=== PATIENT | male | born 1955 | race Caucasian/White ===

== ENCOUNTER 2018-08-31 08:18 | Outpatient (CLI) | payer OTHER, SELFPAY ==
--- NOTE | 2018-08-31 08:24 | DI.RAD_ITS ---
SYMPTOMS/DIAGNOSIS: RM HAND PAIN, M79.671, M79.642 RIGHT HAND: The exam is limited by finger flexion. No fracture or bony erosions are seen. There is mild periarticular spurring. There is no significant joint space narrowing. The carpal region is unremarkable. IMPRESSION: Mild degenerative changes. LEFT HAND: There is soft tissue at the distal aspect of the fourth finger. There is some deformity of the distal phalanx presumably related to an old healed fracture. There is mild periarticular spurring of the interphalangeal joints of the fingers and bases of the proximal phalanges. The carpal region is unremarkable. No bony erosions are seen. IMPRESSION: Tuft deformity related to an old healed fracture. Mild degenerative changes.
== END 2018-08-31 08:38 ==
PROVIDERS: PCP Family Medicine; Visit Provider Family Medicine
DX: M79.641 Pain in right hand (principal); M79.642 Pain in left hand; M19.041 Primary osteoarthritis, right hand; M19.042 Primary osteoarthritis, left hand
CPT/HCPCS: 73130

== ENCOUNTER 2018-09-08 01:33 | Outpatient (CLI) | payer OTHER, SELFPAY ==
[2018-09-08 10:32] LABS: Abs Immature Grans 0.02 k/cumm (0.0-0.09); Absolute Basophil Count 0.03 k/cumm (0.0-0.2); Absolute Eosinophil Count 0.12 k/cumm (0.0-0.7); Absolute Lymphocyte Count 1.76 k/cumm (1.2-3.4); Absolute Monocyte Count 0.49 k/cumm (0.11-0.7); Absolute Neutrophil Count 4.62 k/cumm (1.2-6.7); Basophils % 0.4; Eosinophils % 1.7; HCT 44.3 % (40.0-50.0); HGB 15.5 g/dL (13.5-17.5); Immature Grans % 0.3; Mean Corpuscular Hemoglobin 30.5 pg (27.0-33.0); Mean Platelet Volume 10.6 fL (8.0-11.0); Neutrophils % 65.6; Platelet Count 224 x1000/uL (130-400); RBC 5.09 m/cumm (4.50-6.00); RBC Distribution Width 12.6 % (11.8-14.1); White Blood Cell Count 7.04 k/cumm (4.4-10.8)
[2018-09-08 10:40] LABS: Anion Gap 10.2 mmol/L (3-11); BUN 21 mg/dL (7-18); C-Reactive Protein 0.22 mg/dL (0.0-0.3); CO2 27.8 mmol/L (21.0-32.0); CREATININE 0.84 mg/dL (0.70-1.30); Calcium 8.8 mg/dL (8.5-10.1); Chloride 100 mmol/L (98-107); Glucose 200 mg/dL (70-100); Potassium 4.4 mmol/L (3.5-5.1); Sodium 138 mmol/L (136-145)
[2018-09-08 14:38] LABS: ESR 11 MM/HR (1-20)
== END 2018-09-08 01:53 ==
PROVIDERS: PCP Family Medicine; Visit Provider Family Medicine
DX: M79.641 Pain in right hand (principal); M79.642 Pain in left hand
CPT/HCPCS: 36415; 80048; 85652; 85025; 86140

== ENCOUNTER 2018-09-17 02:06 | Outpatient (CLI) | payer OTHER, SELFPAY ==
[2018-09-17 08:16] LABS: Hemoglobin A1C 8.5 % (4.5-6.2)
[2018-09-18 10:27] LABS: Rheumatoid Factor 13 IU/mL (<12.5)
[2018-09-18 13:56] LABS: ANA Interpretation Negative (NEGAT)
== END 2018-09-17 02:26 ==
PROVIDERS: PCP Family Medicine; Visit Provider Psychiatry & Neurology Neurology
DX: E11.9 Type 2 diabetes mellitus without complications (principal); M79.642 Pain in left hand; M79.641 Pain in right hand
CPT/HCPCS: 36415; 83036; 86038; 86431

== ENCOUNTER 2018-09-30 08:53 | Outpatient (CLI) | payer OTHER, SELFPAY ==
[2018-10-01 09:43] LABS: Cyclic Citrullinated Peptide <2.5 U/mL (<5.0)
== END 2018-09-30 09:13 ==
PROVIDERS: PCP Family Medicine; Visit Provider Family Medicine
DX: M79.641 Pain in right hand (principal); M79.642 Pain in left hand
CPT/HCPCS: 36415; 86200

== ENCOUNTER 2018-10-16 11:06 | Outpatient (CLI) | payer OTHER, SELFPAY ==
--- NOTE | 2018-10-16 10:59 | DI.RAD_ITS ---
SYMPTOMS/DIAGNOSIS: RM HAND PAIN, DYSTROPHY, RECOMMENDED CXR PER RHEUMATOLOGY PA AND LATERAL CHEST: The heart is not enlarged. The lungs appear predominantly clear. There is a question of an area of nodular radiodensity projected over the right lower lung field. Although this may represent a summation shadow, the possibility of intrapulmonary nodule or mass is not excluded. Chest CT requested for further evaluation. No pleural effusion seen. CONCLUSION: Chest CT requested for questionable right lung base finding as described above.
== END 2018-10-16 11:26 ==
PROVIDERS: PCP Family Medicine; Visit Provider Physician Assistant
DX: M79.641 Pain in right hand (principal); M79.642 Pain in left hand; R91.1 Solitary pulmonary nodule
CPT/HCPCS: 71046

== ENCOUNTER 2018-10-22 00:58 | Outpatient (CLI) | payer OTHER, SELFPAY ==
--- NOTE | 2018-10-22 09:39 | DI.CT_ITS ---
SYMPTOM/DIAGNOSIS: PULMONARY NODULE ON CHEST XRAY,R91.[address]: Chest CT was performed with intravenous infusion of 70 cc's of Omnipaque 350. This examination was obtained to evaluate a questionable nodular or mass-like density superimposed over the right lung base on recent chest radiograph. Images obtained through the upper abdomen show hepatic steatosis and a probable upper pole left renal cyst. Otherwise visualized liver, pancreas, adrenals, kidneys and spleen are normal. No mediastinal or hilar adenopathy is seen. Tracheobronchial tree appears intact. Lungs are clear with no evidence of a pulmonary nodule or pulmonary mass. No pleural effusion is seen. CONCLUSION: Negative chest CT. No pulmonary nodule seen.
[2018-10-22] MEDS: Omnipaque 350 MG/ML 100 ML BTL 70 ML IJ (09:41)
== END 2018-10-22 01:18 ==
PROVIDERS: PCP Family Medicine; Visit Provider Family Medicine
DX: R91.1 Solitary pulmonary nodule (principal); K76.0 Fatty (change of) liver, not elsewhere classified; N28.1 Cyst of kidney, acquired
CPT/HCPCS: 71260; J3490

== ENCOUNTER 2018-11-12 11:17 | Day surgery (SDC) | payer OTHER, SELFPAY ==
[2018-11-12 11:40] VITALS: BP 134/81; PULSE 83; RESP 18; TEMP 35.6; O2SAT 96
[2018-11-12] MEDS: Lactated Ringers 1,000 ML 80 ML IV (12:07)
--- NOTE | 2018-11-12 12:17 | PDOC.DSDIS_ITS ---
Discharge Plan Disposition Patient Disposition: HOME Condition: Good Discharge Details Reason For Visit: CTS Attending Provider: Sanjay Cunha Primary Care Provider: Jasper Albrecht Home Meds and New Rx's Prescriptions: New acetaminophen 500 mg tablet 1,000 mg PO Q8H PRN (Reason: pain) Qty: 90 RF: 3 Continued naproxen 500 mg tablet 500 mg PO BID PRN (Reason: pain) Qty: 60 RF: 2 FreeStyle Lite Strips strip 1 ea Miscellaneous DAILY Qty: 90 RF: 3 duloxetine 60 mg capsule,delayed release(DR/EC) 60 mg PO DAILY Qty: 30 RF: 2 glimepiride 2 mg tablet 2 mg PO DAILY Qty: 90 RF: 3 lancets [FreeStyle Lancets] 28 gauge misc 1 ea Miscellaneous DAILY Qty: 90 RF: 3 metformin 750 mg tablet extended release 24 hr 2,250 mg PO DAILY Qty: 270 RF: 3 lisinopril 5 mg tablet 5 mg PO DAILY Qty: 90 RF: 3 lidocaine-prilocaine 2.5-2.5 % cream 1 applic TP .q4hr PRN (Reason: pain) Qty: 30 RF: 3 aspirin [Aspir-81] 81 MG tablet,delayed release (DR/EC) 1 tab PO DAILY RF: 0 blood-glucose meter [FreeStyle Lite Meter] 1 EACH kit 1 ea Miscellaneous DAILY Qty: 1 RF: 0 Discharge Instructions Stand Alone Forms: Alphonse Bonilla Tunnel Release Referrals: Sanjay Cunha MD [ [facility] STAFF PHYSICIAN] - Activity:: Elevate Remove Dressings/Wound Care:: 48 hours Shower/Bathe:: 48 hours Diet:: Carb Counting Discharge Orders Discharge Orders: Discharge Order (Routine); Ordered 11/12/18 Ordered By: Sanjay Cunha DS: Diagnosis Discharge Diagnosis (1) Right carpal tunnel syndrome: Status: Acute
[2018-11-12] MEDS: ceFAZolin 2 GM/50 ML BAG IVPB (12:27)
[2018-11-12] MEDS: Sodium Bicarbonate 50 MEQ/50 ML VIAL (12:37)
[2018-11-12] MEDS: Lidocaine 1% Pres-Free 5 ML VIAL (12:37)
[2018-11-12] MEDS: HYDROcodone 5/Acetaminophen 325 TAB PO (13:17)
[2018-11-12 13:37] VITALS: BP 119/76; PULSE 80; RESP 18; TEMP 35.4; O2SAT 94
--- NOTE | 2018-11-12 15:54 | W.PM.OP ---
Date of service: 11/12/18 Time of Service: 15:54 Operative Note DATE OF PROCEDURE: 11/12/18 PRE-OP DIAGNOSIS: Right Carpal Tunnel Syndrome POST-OP DIAGNOSIS: same PROCEDURE: Right Endoscopic Carpal Tunnel Release SURGEON: Sanjay Cunha ANESTHESIA: MAC ESTIMATED BLOOD LOSS: 0 PATHOLOGY: none sent TOURNIQUET TIME: 6 COMPLICATIONS: None Patient was transported to: same day Patient's condition: stable Indications: I have seen Huber in clinic for symptoms of carpal tunnel syndrome. The numbness, tingling, and pain limited function. Clinical exam findings [with nerve conduction tests ]confirmed the diagnosis of carpal tunnel syndrome. Nonoperative measures such as bracing, time, activity modifications had been tried but disability and pain persisted. I discussed carpal tunnel release with the patient. I reviewed the risks of the procedure to include, but not limited to, bleeding, infection, pain, stiffness, incomplete release, damage to nerves or vessels, persistent numbness, recurrence. Despite these risks, the patient elected to proceed. Findings: There was tightened carpal tunnel. This was dilated and released successfully with the endoscopic with increased space within the tunnel. The antebrachial fascia was released proximally freeing the median nerve at the wrist. Procedure Description: Huber was greeted in the preoperative holding area where the correct side was identified and marked. The consent was reviewed with the patient and signed. The history and physical was updated. All questions were answered. Huber was taken back to the operating room. The patient was placed into the supine position on the operating room table with the right arm on an arm board. A nonsterile tourniquet was placed high onto the arm. All bony prominences were well padded. Prophylactic antibiotics in the form of Cefazolin were administered. The right arm was then prepped with Chloraprep and draped in a standard fashion with stockinette and extremity drape. A timeout to confirm correct identity, side and site, procedure, allergies, anesthesia, and medical concerns was performed. The surgical site was marked in the volar wrist creases in line with the radial border of the fourth ray. This area was anesthetized with approximately 6cc of 1% Lidocaine. The limb was then exsanguinated with an Esmarch. The skin was incised with a 15 blade, approximately 1cm. The skin only was cut and the deeper tissue was dissected bluntly with a tenotomy scissor, avoiding passing nerve and venous structures. The fascia was penetrated and opened bluntly. A two-prong skin hook was placed under this proximal fascial edge. A series of hamate finders were used to identify and dilate the carpal tunnel. Synovial elevator was used to free synovial attachments to the underside of the transverse carpal ligament. My thumb was kept in the palm to manuel the distal extent of the carpal tunnel and correctly position the hand. The Microaire endoscope was inserted without difficulty and without resistance. Excellent visualization showed horizontally running fibers of the transverse carpal ligament (TCL). The distal extent of the TCL was visualized and the end of the scope palpated with the thumb. The blade was elevated and withdrawn from distal to proximal. The TCL was split into two flaps. The endoscope was reinserted to confirm complete release and any remnant ligament was incised. The scope was withdrawn and the proximal aspect of the carpal tunnel was grossly inspected and appeared release with the median nerve visible. The antebrachial fascia at the level of the wrist was then freed from the overlying skin and then the underlying median nerve with blunt dissection. This was transected longitudinally for about 3cm proximal to the wrist incision. The wound was then irrigated with easy flow of irrigant distally and proximally. The incision was closed with a single 4-0 Nylon suture. The wound was dressed with Xeroform, Gauze, Kerlix and Michele. The tourniquet was deflated with the initial dressing and held with some pressure. Blood flow returned easily to all digits with capillary refill less than 2 seconds. The patient tolerated the procedure well and was returned to the Same Day Surgery area in a stable condition suffering no known complication.
== END 2018-11-12 14:05 | disposition home or self-care (01) ==
PROVIDERS: PCP Family Medicine; Visit Provider Student in an Organized Health Care Education/Training Program
PROC: 01N54ZZ Release Median Nerve, Percutaneous Endoscopic Approach (ICD-10-PCS; CPT 29848; principal; 2018-11-12 12:45)
DX: G56.01 Carpal tunnel syndrome, right upper limb (principal)
CPT/HCPCS: 29848; J0690; J1885; J2250; J3010

== ENCOUNTER 2018-12-15 11:32 | Day surgery (SDC) | payer OTHER, SELFPAY ==
[2018-12-15] VITALS (7 sets, daily range): BP systolic 126–150; BP diastolic 77–92; PULSE 70–82; RESP 16–21; TEMP 35.7–36.5; O2SAT 93–95
[2018-12-15] MEDS: Lactated Ringers 1,000 ML 80 ML IV (12:02)
[2018-12-15] MEDS: FAMOTIDINE 20 MG/50 ML BAG 50 MG (13:14)
[2018-12-15] MEDS: ceFAZolin 3,000 MG in Normal Saline 100 ML 200 MG IVPB (13:40)
--- NOTE | 2018-12-15 14:29 | PDOC.DSDIS_ITS ---
Discharge Plan Disposition Patient Disposition: HOME Condition: Good Discharge Details Reason For Visit: Right Ulnar Nerve Decompression Attending Provider: Sanjay Cunha Primary Care Provider: Jasper Albrecht Home Meds and New Rx's Prescriptions: New hydrocodone-acetaminophen 5-325 mg tablet 1 tab PO Q6H PRN PRN (Reason: pain) Qty: 8 RF: 0 Continued naproxen 500 mg tablet 500 mg PO BID PRN (Reason: pain) Qty: 60 RF: 2 FreeStyle Lite Strips strip 1 ea Miscellaneous DAILY Qty: 90 RF: 3 duloxetine 60 mg capsule,delayed release(DR/EC) 60 mg PO DAILY Qty: 30 RF: 2 glimepiride 2 mg tablet 2 mg PO DAILY Qty: 90 RF: 3 lancets [FreeStyle Lancets] 28 gauge misc 1 ea Miscellaneous DAILY Qty: 90 RF: 3 metformin 750 mg tablet extended release 24 hr 2,250 mg PO DAILY Qty: 270 RF: 3 lisinopril 5 mg tablet 5 mg PO DAILY Qty: 90 RF: 3 aspirin [Aspir-81] 81 MG tablet,delayed release (DR/EC) 1 tab PO DAILY RF: 0 blood-glucose meter [FreeStyle Lite Meter] 1 EACH kit 1 ea Miscellaneous DAILY Qty: 1 RF: 0 acetaminophen 500 mg tablet 1,000 mg PO Q8H PRN (Reason: pain) Qty: 90 RF: 3 Biofreeze (menthol) 4 % Gel 4 % TOPICAL PRN PRNRF: 0 Discharge Instructions Additional Instructions: Activity: You should stay in the sling for the first 2 weeks. You may come out of the sling for gentle motion and hygiene but should largely remain in the sling to allow the incision site to heal. Gentle motion of the elbow, hand, wrist, and fingers is okay and encouraged after the first few days, but no repetitive activites nor heavy lifting. You may apply ice. Medications: - You should take Tylenol and Ibuprofen around the clock. - You have been prescribed Hydrocodone for breakthrough pain. Dressings: - The initial surgical dressing should stay in place for 3 days. It may then be removed and kept clean and dry. You should cover with a light gauze dressing. - You may shower after 3 days and get the wound wet. Follow-up: 10 days Referrals: Sanjay Cunha MD [ 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
--- NOTE | 2018-12-16 11:37 | ROE_ITS ---
REPORT OF OPERATIVE PROCEDURE DATE OF SURGERY December 15, 2018 PREOPERATIVE DIAGNOSIS Right cubital tunnel syndrome. POSTOPERATIVE DIAGNOSIS Right cubital tunnel syndrome. SURGERY Right cubital tunnel decompression with anterior subcutaneous ulnar nerve transposition. SURGEON Sanjay Cunha M.D. [employer] ENGINE[employer] Bright Carrasco PA-C ANESTHESIA General. ESTIMATED BLOOD LOSS Minimal. TOURNIQUET TIME 26 Minutes. COMPLICATIONS None. DISPOSITION The patient was awakened from anesthesia and taken to the PACU in stable condition. FINDINGS There was notable tightness of the ulnar nerve at the level of Pop's ligament and going into the flexor carpi ulnaris. It was less tight proximally. There was also noted to be a very odd looking fa tty sheath surrounding the ulnar nerve. This was released separately to expose the ulnar nerve. Decom pression was done first and the nerve still was INDICATION FOR PROCEDURE Huber is a 63-year old who has a very bizarre symptom presentation of the inability to use his hand. He had some numbness and pain that did not seem to fit with any known diagnosis. Hew as seen by Neurolo gy, which showed very clear carpal and cubital tunnel syndrome on the right side by nerve conduction studies. Given the failure of all other treatment modalities, I did offer decompression of each, he h ad the carpal tunnel release done a few weeks prior, which had excellent results in resolving some of his symptoms and increasing the usability of his hand. Therefore, I offered proceeding with a cubita l tunnel release. I reviewed the risks of the procedure to include bleeding, infection, pain, stiffness, damage to nerv e, damage to vessels, damage to muscles and tendons, continued symptoms, numbness over the medial elb ow, wound healing difficulties, despite these risks, he elected to proceed. PROCEDURE DESCRIPTION Huber is a 63-year who was greeted in the preoperative holding area. His identity was confirmed and the correct side was identified and marked. The consent was reviewed with the patient and signed. The hi story and physical was updated. He was taken back to the Operating Room. A general anesthetic was administered. He right arm was jarad kane onto a hand table. A nonsterile tourniquet was placed very high up on the right arm into the axil la. The tourniquet was set to 275 mmHg. The right arm was then prepped with ChloraPrep and draped in a standard fashion. Prophylactic antibio tics in the form of cefazolin 3 grams was given. A time-out was performed for safe surgery. The proposed surgical site was marked over the medial elbow. It was anesthetized with 0.5% bupivacain e with epinephrine. The limb was then exsanguinated with an Esmarch and the tourniquet was inflated to 275 mmHg, where it stayed for 27 minutes. A 6-cm incision was made just posterior to the medial epicondyle. The medial epicondyle was marked on the skin for later referencing. The skin was incised sharply. Deep dissection was carried down with tenotomy scissors. There were two branches of the medial and antebrachial cutaneous nerve, which seem ed to be identified, however, visualization was quite difficult given the amount of fat in this area. Adiposity was quite dense and difficult to get down to the appropriate level. These two nerve branch es were protected. The ulnar nerve was identified by palpation. The sheath was entered. Interestingly , the Pop's ligament was quite tight. This was released sharply. There was a fatty appearance to the nerve, which seemed to be an outer synovial sheath of fat. This was incised, exposing the ulnar n erve. This sheath was actually quite adherent and tight in areas too. This was released down through Pop's ligament down to two heads of the FCU. The fascia of the flexor carpi ulnaris was also shweta te tight against the nerve. This was extended down into the forearm. It was made sure to protect any of the branches into the flexor carpi ulnaris muscle. The ulnar nerve was fully identified from the l evel of the medial epicondyle distally, which seemed to have good release. Working proximally, there was some tightness at the [place]. This was released. The medial intermuscular septum was not particularly dense nor sharp against the ulnar nerve in this area. A finger dissection was used to make sure the nerve was free all the way into the proximal arm. Any remnant of the arcade of Str[place] hers was releases sharply. The nerve was then evaluated for stability. With the arm in maximal flexio n, the nerve did sublux to the outer edge of the medial epicondyle. While it did not fully dislocate, given his size and the curious nature of his symptoms, I went ahead with the anterior subcutaneous t ransposition. A small flap of tissue was raised from the fascia overlying the medial epicondyle from the flexor pronator mass. This would be used for a fascial sling. The nerve was made sure to be total ly free. A vessel loop was placed around the nerve and circumferential debridement was performed allo wing the nerve to move anterior. Once it was moved anterior and held in that position, the distal and proximal edges were also checked to make sure there was no other secondary sources of impingement. T here appeared to be none. The fascial sling was then reapproximated to the deep dermal layer at the l evel of the medial epicondyle as marked on the skin. This was done with a #0-Vicryl. Once this was ti ed, the nerve was fully inspected, which seemed to be loose within the anterior aspect of the elbow, although resting against the sling. The wound was then thoroughly irrigated. The tourniquet was defla toma. There was no major bleeding. The skin was closed with #3-0 Vicryl, followed by #4-0 Nylon. The w ound was dressed Xeroform, 4x4s, ABD, Kerlix and an Michele wrap. He was placed into a sling. At the end of the case all counts were correct. He was transferred back to the PACU in stable condition. There were no complications.
== END 2018-12-15 16:45 | disposition home or self-care (01) ==
PROVIDERS: PCP Family Medicine; Visit Provider Student in an Organized Health Care Education/Training Program
PROC: (CPT 64718; principal; 2018-12-15 14:00)
DX: G56.21 Lesion of ulnar nerve, right upper limb (principal); E11.9 Type 2 diabetes mellitus without complications; I10 Essential (primary) hypertension
CPT/HCPCS: 64718; J0131; J0690; J1100; J1885; J2405; L3650

== ENCOUNTER 2018-12-30 08:45 | Outpatient (CLI) | payer OTHER, SELFPAY ==
[2018-12-30 11:22] LABS: Vitamin B12 387 pg/mL (193-986)
[2018-12-31 08:34] LABS: Hemoglobin A1C 9.8 % (4.5-6.2)
[2018-12-31 13:30] LABS: Albumin 57.8 % (55.8-66.1); Comment SEE COMMENTS; Total Protein 6.8 g/dl (6.3-8.2)
[2019-01-05 19:04] LABS: Immunotyping, Serum Interpretation:
== END 2018-12-30 09:05 ==
PROVIDERS: PCP Family Medicine; Visit Provider Family Medicine
DX: R63.4 Abnormal weight loss (principal); E11.9 Type 2 diabetes mellitus without complications
CPT/HCPCS: 36415; 82607; 83036; 84165; 86320

== ENCOUNTER 2019-03-30 09:06 | Outpatient (CLI) | payer OTHER, SELFPAY ==
[2019-03-30 15:06] LABS: Hemoglobin A1C 10.3 % (4.5-6.2)
== END 2019-03-30 09:26 ==
PROVIDERS: PCP Family Medicine; Visit Provider Family Medicine
DX: E11.9 Type 2 diabetes mellitus without complications (principal)
CPT/HCPCS: 36415; 83036

== ENCOUNTER 2019-07-11 09:34 | Emergency (ER) | payer OTHER, SELFPAY ==
[2019-07-11 09:37] VITALS: BP 142/80; PULSE 118; TEMP 36.6; O2SAT 96
--- NOTE | 2019-07-11 10:23 | ED.GENADUL_ITS ---
Discharge Plan Disposition Patient Disposition: [facility] Condition: Stable Discharge Details Chief Complaint: Cellulitis Clinical Impression: Cellulitis of scrotum, Pathological accumulation of air in tissues, Necrotizing fasciitis Primary Care Provider: Jasper Albrecht ED Provider: Argelia Mike Home Meds and New Rx's Prescriptions: No Action naproxen 500 mg tablet 500 mg PO BID PRN (Reason: pain) Qty: 60 RF: 2 Hold Instructions: Changed by Provider (SUSAN) FreeStyle Lite Strips strip 1 ea Miscellaneous DAILY Qty: 90 RF: 3 glimepiride 2 mg tablet 2 mg PO DAILY Qty: 90 RF: 3 (DME) lancets [FreeStyle Lancets] 28 gauge misc 1 ea Miscellaneous DAILY Qty: 90 RF: 3 metformin 750 mg tablet extended release 24 hr 2,250 mg PO DAILY Qty: 270 RF: 3 hydrocodone-acetaminophen 5-325 mg tablet 1 tab PO Q6H PRN PRN (Reason: pain) RF: 0 lisinopril 5 mg tablet 5 mg PO DAILY Qty: 90 RF: 3 aspirin [Aspir-81] 81 MG tablet,delayed release (DR/EC) 1 tab PO DAILY RF: 0 (DME) blood-glucose meter [FreeStyle Lite Meter] 1 EACH kit 1 ea Miscellaneous DAILY Qty: 1 RF: 0 Jardiance 10 mg tablet 10 mg PO DAILY Qty: 30 RF: 2 acetaminophen 500 mg tablet 1,000 mg PO Q8H PRN (Reason: pain) Qty: 90 RF: 3 Biofreeze (menthol) 4 % Gel 4 % TOPICAL PRN PRNRF: 0 Medical Decision Making 1215 -- 64-year-old male with a history of obesity, diabetes, hypertension presents for right scrotal pain, edema, erythema for the past 4 days. States his sugars have been in the 120s. He denies fever, vomiting, abdominal pain or urinary symptoms Patient appears nontoxic. Patient has significant erythema, edema and indura tion to the right superior scrotum. He does not have significant tenderness or erythema to the testicles bilaterally. Penis normal to inspection. Abdomen soft and nontender. Main concern for necrotizing fasciitis. Differential could also include cellulitis, abscess, hernia. Will place an IV, bolus IV fluids, screening labs, urinalysis and CT pelvis and a dose of morphine. 1250 -- Labs and imaging reviewed. White blood cell count 13. Lactate 1.1. CT pelvis notes 15 mm collection of air in the soft tissues of the right scrotum consistent with significant infection, differential includes early necrotizing fasciitis. There is also a 3 cm oval structure right hemiscrotum which may represent active extravasation. Case discussed with surgery Dr. Bean and recommends transfer to [facility] as we do not have biologic material if needed for plastic surgery Case discussed with [facility] surgery Dr. Theodore --recommends urology - discussed with urology Dr. Birch who recommends urgent transfer to the ED with plans to take to the OR. Agreeable with plan for [facility] Zosyn. Will give 7 units insulin for hyperglycemia. Patient is agreeable with plan for transfer. Medical Records Medical records reviewed: Yes I reviewed the patient's medical records. Imaging Data Radiologic Study: Radiologist's impression: CT Abdomen And Pelvis With Contrast Exam date and time: 07/11/2019 11:22 AM Age: 64 years old Clinical indication: Abdominal pain; Other: Groin pain; Patient HX: Right upper scrotum pain/ redness/ swelling. Patient sts right testicular pain x4 days, no trauma, no surgeries, no issues urinating. TECHNIQUE: Imaging protocol: Computed tomography of the abdomen and pelvis with intravenous contrast. Radiation optimization: All CT scans at this facility use at least one of these dose optimization techniques: automated exposure control; mA and/or kV adjustment per patient size (includes targeted exams where dose is matched to clinical indication); or iterative reconstruction. Contrast material: OMNIPAQUE 350; Contrast volume: 100 ml; Contrast route: IV; COMPARISON: No relevant prior studies available. FINDINGS: Liver: Normal. No mass. Gallbladder and bile ducts: Normal. No calcified stones. No ductal dilation. Pancreas: Normal. No ductal dilation. Spleen: Normal. No splenomegaly. Adrenals: Normal. No mass. Kidneys and ureters: 2 cm hypodensity in the left kidney on the 1st image. Thirty Hounsfield units. The differential includes infection. No renal calculus. No ureteral calculus Stomach and bowel: Unremarkable. No obstruction. No mucosal thickening. Appendix: Normal appendix Intraperitoneal space: Unremarkable. No free air. No significant fluid collection. Vasculature: Unremarkable. No abdominal aortic aneurysm. Lymph nodes: Unremarkable. No enlarged lymph nodes. Bladder: Unremarkable as visualized. Reproductive: 15 mm collection of air in the soft tissues of the right scrotum consistent with significant infection. Differential includes early necrotizing fasciitis. Inflammatory changes surround the air in the right scrotum. 3 cm oval structure in the right hemiscrotum has a fluid fluid level and curvilinear hyperdensities. This may represent active extravasation into the right scrotum. Image 83 and 84. Bones/joints: Unremarkable. No acute fracture. Soft tissues: Unremarkable. IMPRESSION: 1. 15 mm collection of air in the soft tissues of the right scrotum consistent with significant infection. Differential includes early necrotizing fasciitis. Inflammatory changes surround the air in the right scrotum. 2. 3 cm oval structure in the right hemiscrotum has a fluid fluid level and curvilinear hyperdensities. This may represent active extravasation into the right scrotum. Image 83 and 84. This could also represent hematoma and infection 3. 2 cm hypodensity in the left kidney on the 1st image. Thirty Hounsfield units. The differential includes infection. Lab Data Lab results reviewed: Yes I reviewed the patient's lab results. Labs: 07/11/19 11:13 Blood Blood Culture - Pending 07/11/19 10:45 Blood Blood Culture - Pending Laboratory Tests Range/Units 07/11/19 07/11/19 07/11/19 10:45 10:45 10:45 WBC (4.4-10.8) k/cumm 13.09 H RBC (4.50-6.00) m/cumm 4.81 Hgb (13.5-17.5) g/dL 14.7 Hct (40.0-50.0) % 42.2 MCV (80-95) fL 87.7 MCH (27.0-33.0) pg 30.6 MCHC (32.0-36.0) g/dL 34.8 RDW (11.8-14.1) % 12.1 Plt Count (130-400) x1000/uL 238 MPV (8.0-11.0) fL 10.0 Immature Gran % % 0.3 Neutrophils % 79.6 Lymphocytes % 11.1 Monocytes % 8.6 Eosinophils % 0.2 Basophils % 0.2 Absolute Neutrophils (1.2-6.7) k/cumm 10.42 H Absolute Lymphocytes (1.2-3.4) k/cumm 1.45 Absolute Monocytes (0.11-0.7) k/cumm 1.13 H Absolute Eosinophils (0.0-0.7) k/cumm 0.03 Absolute Basophils (0.0-0.2) k/cumm 0.03 Sodium (136-145) mmol/L 132 L Potassium (3.5-5.1) mmol/L 4.1 Chloride (98-107) mmol/L 96 L Carbon Dioxide (21.0-32.0) mmol/L 22.8 Anion Gap (3-11) mmol/L 13.2 H BUN (7-18) mg/dL 14 Creatinine (0.70-1.30) mg/dL 0.71 Estimated GFR/1.73 m2 (mL/min/1.73m2) >= 60.00 Glucose (74-106) mg/dL 455 H Lactate (0.6-1.4) mmol/L 1.1 Calcium (8.5-10.1) mg/dL 8.6 Total Bilirubin (0.2-1.0) mg/dL 1.1 H AST (15-37) U/L 10 L ALT (16-63) U/L 25 Alkaline Phosphatase (46-116) U/L 81 Total Protein (6.4-8.2) g/dL 7.8 Albumin (3.4-5.0) g/dL 3.3 L Urine Color (Yellow) Urine Clarity (Clear) Urine pH (5-8) Ur Specific [place] (1.005-1.025) Urine Protein (Negative) mg/dL Urine Ketones (Negative) mg/dL Urine Blood (Negative) Urine Nitrite (Negative) Urine Bilirubin (Negative) Urine Urobilinogen (Up TO 0.2) EU/dL Ur Leukocyte Esterase (Negative) Urine Glucose (Negative) mg/dL Range/Units 07/11/19 10:59 WBC (4.4-10.8) k/cumm RBC (4.50-6.00) m/cumm Hgb (13.5-17.5) g/dL Hct (40.0-50.0) % MCV (80-95) fL MCH (27.0-33.0) pg MCHC (32.0-36.0) g/dL RDW (11.8-14.1) % Plt Count (130-400) x1000/uL MPV (8.0-11.0) fL Immature Gran % % Neutrophils % Lymphocytes % Monocytes % Eosinophils % Basophils % Absolute Neutrophils (1.2-6.7) k/cumm Absolute Lymphocytes (1.2-3.4) k/cumm Absolute Monocytes (0.11-0.7) k/cumm Absolute Eosinophils (0.0-0.7) k/cumm Absolute Basophils (0.0-0.2) k/cumm Sodium (136-145) mmol/L Potassium (3.5-5.1) mmol/L Chloride (98-107) mmol/L Carbon Dioxide (21.0-32.0) mmol/L Anion Gap (3-11) mmol/L BUN (7-18) mg/dL Creatinine (0.70-1.30) mg/dL Estimated GFR/1.73 m2 (mL/min/1.73m2) Glucose (74-106) mg/dL Lactate (0.6-1.4) mmol/L Calcium (8.5-10.1) mg/dL Total Bilirubin (0.2-1.0) mg/dL AST (15-37) U/L ALT (16-63) U/L Alkaline Phosphatase (46-116) U/L Total Protein (6.4-8.2) g/dL Albumin (3.4-5.0) g/dL Urine Color (Yellow) Yellow Urine Clarity (Clear) Clear Urine pH (5-8) 5.5 Ur Specific [place] (1.005-1.025) 1.010 Urine Protein (Negative) mg/dL Negative Urine Ketones (Negative) mg/dL 40 H Urine Blood (Negative) Negative Urine Nitrite (Negative) Negative Urine Bilirubin (Negative) Negative Urine Urobilinogen (Up TO 0.2) EU/dL 0.2 Ur Leukocyte Esterase (Negative) Negative Urine Glucose (Negative) mg/dL 500 H HPI General Mode of arrival: ambulatory . Date/Time Provider Initiated Documentation: 07/11/19 09:34 . Limitations to Documentation: no limitations . Information obtained by: patient . History of Present Illness 64 year old M presents to the emergency department with the chief complaint of R groin pain, redness, and swelling, and is localized to the genitals. Patient started experiencing this day(s) (3) and it has been constant. No relieving factors improve symptom(s), No exacerbating factors reported . Patient notes denies cough, diaphoresis, fever/chills, headaches, loss of appetite, malaise, nausea/vomiting, rash, seizure, shortness of breath, syncope and weakness. Patient did receive the following treatments prior to arrival, none Related Data Home Medications Medication Instructions Recorded Confirmed aspirin [Aspir-81] 1 tab PO DAILY 02/09/14 07/11/19 blood-glucose meter [FreeStyle #1 kit 11/28/17 03/30/19 Lite Meter] naproxen 500 mg tablet 500 mg PO BID PRN #60 tab 08/28/18 07/11/19 lisinopril 5 mg tablet 5 mg PO DAILY #90 tab-cap 10/09/18 07/11/19 blood sugar diagnostic #90 strip 11/11/18 03/30/19 glimepiride 2 mg tablet 2 mg PO DAILY #90 tab-cap 11/11/18 07/11/19 lancets 28 gauge #90 ea 11/11/18 03/30/19 metformin 750 mg tablet,extended 2,250 mg PO DAILY #270 tab-cap 11/11/18 07/11/19 release 24 hr acetaminophen 1,000 mg PO Q8H PRN #90 tab 11/12/18 07/11/19 Biofreeze (menthol) 4 % TOPICAL PRN PRN 12/14/18 07/11/19 hydrocodone 5 mg-acetaminophen 325 1 tab PO Q6H PRN PRN tab 12/30/18 07/11/19 mg tablet empagliflozin 10 mg tablet 10 mg PO DAILY #30 tab 01/01/19 07/11/19 Previous Rx's Medication Instructions Recorded blood-glucose meter [FreeStyle #1 kit 11/28/17 Lite Meter] naproxen 500 mg tablet 500 mg PO BID PRN #60 tab 08/28/18 lisinopril 5 mg tablet 5 mg PO DAILY #90 tab-cap 10/09/18 blood sugar diagnostic #90 strip 11/11/18 glimepiride 2 mg tablet 2 mg PO DAILY #90 tab-cap 11/11/18 lancets 28 gauge #90 ea 11/11/18 metformin 750 mg tablet,extended 2,250 mg PO DAILY #270 tab-cap 11/11/18 release 24 hr acetaminophen 1,000 mg PO Q8H PRN #90 tab 11/12/18 empagliflozin 10 mg tablet 10 mg PO DAILY #30 tab 01/01/19 Allergies Allergy/AdvReac Type Severity Reaction Status Date / Time aspirin Allergy Intermediate CHEST PAIN Verified 07/11/19 09:40 methylprednisolone AdvReac Verified 07/11/19 09:40 DECAFFEINATED COFFEE Allergy Severe UNABLE TO Uncoded 07/11/19 09:40 BREATHE General Stated Complaint: RashLesion NATHALY: 4 Review of Systems All systems reviewed & are unremarkable except as noted in HPI and below Constitutional Constitutional: Reports as per HPI, Denies chills and Denies fever(s) Eyes Eyes: Denies blurry vision ENT Ears, Nose, Mouth, and Throat: Denies dizziness, Denies sore throat and Denies throat swelling Cardiovascular Cardiovascular: Denies chest pain and Denies dyspnea Respiratory Respiratory: Denies cough and Denies dyspnea Gastrointestinal Gastrointestinal: Denies abdominal pain, Denies diarrhea and Denies vomiting Genitourinary Genitourinary: Denies hematuria, Denies dysuria and Reports other (R upper scrotal swelling, redness, and pain ) Musculoskeletal Musculoskeletal: Denies back pain and Denies numbness Integumentary/Breasts Skin/Breast: Denies lesions and Denies rash Neurologic Neurologic: Denies dizziness, Denies focal weakness and Denies numbness Allergic/Immunologic Allergic/Immunologic: Denies throat swelling [facility] Medical History Adjustment disorder with depressed mood (Acute) Anxiety (Acute 02/05/13) needle phobia Carpal tunnel syndrome on both sides (Chronic) Diabetes mellitus (Acute 02/01/13) History of loss of consciousness (Acute) Needle phobia; 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 Cunha (R) Family History Mother No problems noted. Father Stroke Sister No problems noted. Brother No problems noted. Son No problems noted. Son No problems noted. 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 Frequency: daily Special ken needs: No Do you feel safe at home: Yes Do you feel safe in your relationship?: Yes Exam Const General: cooperative and no acute distress Nutritional Appearance: obese morbidly obese Orientation: alert, awake and oriented x3 HENMT Head: normal to inspection Face and sinus: normal facial exam Eyes General: appearance normal, both eyes and all related structures EOM: EOM intact bilaterally Neck Neck: normal visual inspection and No submandibular swelling Lymphatic: no lymphadenopathy noted Chest Chest: normal inspection of the chest and no tenderness Resp Effort & Inspection: normal respiratory effort and able to speak in complete sentences Auscultation: clear to auscultation bilaterally Cardio Rate: regular rate Rhythm: regular rhythm GI Inspection: normal to inspection Palpation: soft, not firm, not rigid and nontender Auscultation: normal bowel sounds Male genitals images: 1. Significantly tender, indurated, erythematous to right superior scrotum. No obvious area of fluctuance consistent with abscess. No palpable hernia. Penis normal to inspection. There is no significant tenderness to testicles. Skin General skin exam: no rashes or lesions noted Neuro General: alert, awake and oriented x3 Cognition: normal cognition Speech: speech normal Motor: muscle tone normal throughout Sensory Exam: no sensory deficits noted Extrem General: normal to inspection, full ROM, normal capillary refill, no calf tenderness bilaterally and no edema Psych Appearance: grossly normal Mental Status: mental status grossly normal Speech and Movement: speech and movement normal Affect: normal affect Course Vital Signs Vital signs: Vital Signs Temperature 97.9 F 07/11/19 09:37 Pulse 118 H 07/11/19 09:37 Blood Pressure 142/80 H 07/11/19 09:37 Pulse Oximetry 96 01/05/20 09:37 Temperature 97.9 F 07/11/19 09:37 Pulse 118 H 07/11/19 09:37 Respiratory Effort Non-Labored 07/11/19 09:39 Blood Pressure 142/80 H 07/11/19 09:37 Blood Pressure Position Sitting 07/11/19 09:37 Pulse Oximetry 96 07/11/19 09:37 Oxygen Delivery Method Room Air 07/11/19 09:37 Oxygen Flow Rate 0 07/11/19 09:37 Pain Level 9 07/11/19 09:37 Lab/Test Results Lab/Test Results: 07/11/19 10:21 Blood Blood Culture - Pending 07/11/19 10:21 Blood Blood Culture - Pending
[2019-07-11] MEDS: Omnipaque 350 MG/ML 100 ML BTL IJ (10:44)
[2019-07-11 10:52] LABS: Lactate 1.1 mmol/L (0.6-1.4)
[2019-07-11] MEDS: Normal Saline Flush 10 ML SYR IVP (10:56)
[2019-07-11] MEDS: Normal Saline 1,000 ML 1000 ML IV (10:56)
[2019-07-11 11:04] LABS: Abs Immature Grans 0.04 k/cumm (0.0-0.09); Absolute Eosinophil Count 0.03 k/cumm (0.0-0.7); Absolute Lymphocyte Count 1.45 k/cumm (1.2-3.4); Absolute Monocyte Count 1.13 k/cumm (0.11-0.7); Absolute Neutrophil Count 10.42 k/cumm (1.2-6.7); Basophils % 0.2; Eosinophils % 0.2; HCT 42.2 % (40.0-50.0); HGB 14.7 g/dL (13.5-17.5); Immature Grans % 0.3 %; Lymphocytes % 11.1; Mean Corp. HGB Concentration 34.8 g/dL (32.0-36.0); Mean Corpuscular Hemoglobin 30.6 pg (27.0-33.0); Mean Corpuscular Volume 87.7 fL (80-95); Monocytes % 8.6; Neutrophils % 79.6; Platelet Count 238 x1000/uL (130-400); RBC 4.81 m/cumm (4.50-6.00); RBC Distribution Width 12.1 % (11.8-14.1); White Blood Cell Count 13.09 k/cumm (4.4-10.8)
[2019-07-11 11:05] LABS: Bilirubin Negative (Negative); Blood Negative (Negative); Clarity Clear (Clear); Glucose 500 mg/dL (Negative); Ketones 40 mg/dL (Negative); Leukocyte Esterase Negative (Negative); Nitrite Negative (Negative); Urobilinogen 0.2 EU/dL (Up TO 0.2); pH 5.5 (5-8)
[2019-07-11 11:08] LABS: Absolute Basophil Count 0.03 k/cumm (0.0-0.2)
[2019-07-11 11:18] LABS: ALT 25 U/L (16-63); AST 10 U/L (15-37); Albumin 3.3 g/dL (3.4-5.0); Alkaline Phosphatase 81 U/L (46-116); Anion Gap 13.2 mmol/L (3-11); BUN 14 mg/dL (7-18); Bilirubin, Total 1.1 mg/dL (0.2-1.0); CO2 22.8 mmol/L (21.0-32.0); CREATININE 0.71 mg/dL (0.70-1.30); Calcium 8.6 mg/dL (8.5-10.1); Chloride 96 mmol/L (98-107); Glucose 455 mg/dL (74-106); Potassium 4.1 mmol/L (3.5-5.1); Sodium 132 mmol/L (136-145); Total Protein 7.8 g/dL (6.4-8.2)
--- NOTE | 2019-07-11 11:28 | DI.CT_ITS ---
EXAM: CT PELVIC W CLINICAL HISTORY: R upper scrotum pain/redness/swelling TECHNIQUE: Post IV contrast. Without oral contrast. Images were performed from the upper poles of the kidneys through the upper thighs. COMPARISON: No exams were available for comparison FINDINGS: There is soft tissue edema and skin swelling of the scrotum. There is an air collection in the right inguinal region, lateral to the inguinal canal. No drainable abscess is seen. The inferior portion of the liver shows fatty infiltration. The gallbladder, inferior portion of th e spleen and pancreas are unremarkable. There is no hydronephrosis. Bladder and prostate appear nor mal. The appendix is normal. There is no bowel dilatation or inflammatory change. No bony abnormal ities are identified. There is a tiny umbilical hernia containing a non obstructed loop of small alejandra l. IMPRESSION: Severe scrotal swelling. Gas collection in the right inguinal region, lateral to the inguinal canal in the fat, consistent with infection. No drainable abscess.
[2019-07-11 12:05] VITALS: BP 101/39; PULSE 90; RESP 18; O2SAT 92
--- NOTE | 2019-07-11 12:11 | DI.VRAD_ITS ---
PROCEDURE INFORMATION: Exam: CT Abdomen And Pelvis With Contrast Exam date and time: 07/11/2019 11:22 AM Age: 64 years old Clinical indication: Abdominal pain; Other: Groin pain; Patient HX: Right upper scrotum pain/ redness/ swelling. Patient sts right testicular pain x4 days, no trauma, no surgeries, no issues urinating. TECHNIQUE: Imaging protocol: Computed tomography of the abdomen and pelvis with intravenous contrast. Radiation optimization: All CT scans at this facility use at least one of these dose optimization techniques: automated exposure control; mA and/or kV adjustment per patient size (includes targeted exams where dose is matched to clinical indication); or iterative reconstruction. Contrast material: OMNIPAQUE 350; Contrast volume: 100 ml; Contrast route: IV; COMPARISON: No relevant prior studies available. FINDINGS: Liver: Normal. No mass. Gallbladder and bile ducts: Normal. No calcified stones. No ductal dilation. Pancreas: Normal. No ductal dilation. Spleen: Normal. No splenomegaly. Adrenals: Normal. No mass. Kidneys and ureters: 2 cm hypodensity in the left kidney on the 1st image. Thirty Hounsfield units. The differential includes infection. No renal calculus. No ureteral calculus Stomach and bowel: Unremarkable. No obstruction. No mucosal thickening. Appendix: Normal appendix Intraperitoneal space: Unremarkable. No free air. No significant fluid collection. Vasculature: Unremarkable. No abdominal aortic aneurysm. Lymph nodes: Unremarkable. No enlarged lymph nodes. Bladder: Unremarkable as visualized. Reproductive: 15 mm collection of air in the soft tissues of the right scrotum consistent with significant infection. Differential includes early necrotizing fasciitis. Inflammatory changes surround the air in the right scrotum. 3 cm oval structure in the right hemiscrotum has a fluid fluid level and curvilinear hyperdensities. This may represent active extravasation into the right scrotum. Image 83 and 84. Bones/joints: Unremarkable. No acute fracture. Soft tissues: Unremarkable. IMPRESSION: 1. 15 mm collection of air in the soft tissues of the right scrotum consistent with significant infection. Differential includes early necrotizing fasciitis. Inflammatory changes surround the air in the right scrotum. 2. 3 cm oval structure in the right hemiscrotum has a fluid fluid level and curvilinear hyperdensities. This may represent active extravasation into the right scrotum. Image 83 and 84. This could also represent hematoma and infection 3. 2 cm hypodensity in the left kidney on the 1st image. Thirty Hounsfield units. The differential includes infection. THIS REPORT CONTAINS FINDINGS THAT MAY BE CRITICAL TO PATIENT CARE. The findings were verbally communicated via telephone conference with ravi jerez at 12:10 PM EST on 07/11/2019. The findings were acknowledged and understood. Dictated and Authenticated by: Toni Purcell MD. Ordering:JEANNETTE Stout MD
[2019-07-11] MEDS: Insulin REGULAR-Human 100 UNITS/ML UNIT 7 UNITS IV (13:02)
[2019-07-11] MEDS: PIPERACILLIN/TAZO 3.375 GM in Normal Saline 50 ML IVPB (13:07)
[2019-07-11] MEDS: Lactated Ringers 1,000 ML 1000 ML IV (13:10)
== END 2019-07-11 13:48 | disposition short-term general hospital (02) ==
PROVIDERS: Emergency Provider Physician Assistant; PCP Family Medicine
DX: N49.2 Inflammatory disorders of scrotum (principal); M72.6 Necrotizing fasciitis; R93.811 Abnormal radiologic findings on diagnostic imaging of right testicle; E11.65 Type 2 diabetes mellitus with hyperglycemia; Z79.84 Long term (current) use of oral hypoglycemic drugs; I10 Essential (primary) hypertension
CPT/HCPCS: 36415; 80053; 87040; 96361; 96365; 96366; 96368; 96375; 99285; 72193; 81003; 83605; 85025; J2543; J3490

== ENCOUNTER 2020-02-09 12:55 | Outpatient (REF) | payer OTHER, SELFPAY ==
[2020-02-09 13:52] LABS: Calculated LDL 107 mg/dL (<100); Cholesterol 196 mg/dL (<200); HDL Cholesterol 45 mg/dL (40-60); Triglyceride 223 mg/dL (<150)
[2020-02-09 13:54] LABS: Hemoglobin A1C 9.5 % (3.8-5.6)
== END 2020-02-09 13:15 ==
LOC: LBN 12:55
PROVIDERS: PCP Family Medicine; Visit Provider Family Medicine
DX: R73.9 Hyperglycemia, unspecified (principal); E78.5 Hyperlipidemia, unspecified
CPT/HCPCS: 80061; 83036

== ENCOUNTER 2020-12-19 09:05 | Outpatient (CLI) | payer OTHER, SELFPAY ==
[2020-12-19 12:47] LABS: Calculated LDL 118 mg/dL (<100); Cholesterol 195 mg/dL (<200); HDL Cholesterol 41 mg/dL (40-60); Hemoglobin A1C 9.8 % (<5.7); Potassium 4.5 mmol/L (3.5-5.1); Triglyceride 184 mg/dL (<150)
== END 2020-12-19 09:06 | disposition home or self-care (01) ==
LOC: LOS 09:05
PROVIDERS: PCP Family Medicine; Referring Provider Family Medicine; Visit Provider Family Medicine
DX: E11.65 Type 2 diabetes mellitus with hyperglycemia (principal); I10 Essential (primary) hypertension; E78.5 Hyperlipidemia, unspecified
CPT/HCPCS: 36415; 80061; 82565; 83036; 84132

== ENCOUNTER 2021-04-03 14:43 | Outpatient (REF) | payer MEDICARE, SELFPAY ==
[2021-04-03 19:44] LABS: Anion Gap 9.2 mmol/L (3-11); BUN 16 mg/dL (7-18); CO2 26.8 mmol/L (21.0-32.0); Calcium 8.5 mg/dL (8.5-10.1); Chloride 102 mmol/L (98-107); Glucose 325 mg/dL (74-106); Potassium 4.4 mmol/L (3.5-5.1); Sodium 138 mmol/L (136-145)
== END 2021-04-03 14:44 | disposition home or self-care (01) ==
LOC: LBN 14:43
PROVIDERS: PCP Family Medicine; Visit Provider Nurse Practitioner Family
DX: L03.116 Cellulitis of left lower limb (principal); E11.9 Type 2 diabetes mellitus without complications
CPT/HCPCS: 80048

== ENCOUNTER 2021-04-04 03:24 | Outpatient (CLI) | payer MEDICARE, SELFPAY ==
[2021-04-04 12:29] LABS: Abs Immature Grans 0.04 10^3/uL (0.0-0.06); Absolute Basophil Count 0.03 10^3/uL (0.0-0.2); Absolute Eosinophil Count 0.09 10^3/uL (0.0-0.7); Absolute Lymphocyte Count 1.51 10^3/uL (1.2-3.4); Absolute Monocyte Count 0.55 10^3/uL (0.1-0.8); Absolute Neutrophil Count 3.31 10^3/uL (1.2-6.7); Basophils % 0.5; Eosinophils % 1.6; HCT 42.5 % (40.0-50.0); HGB 14.2 g/dL (13.5-17.5); Immature Grans % 0.7; Lymphocytes % 27.3; MCH 29.5 pg (27.0-33.0); MCHC 33.4 % (32.0-36.0); MCV 88.2 fL (80-95); MPV 10.4 fL (8.0-11.0); Monocytes % 9.9; Nucleated RBC 0 %; Platelet Count 198 10^3/uL (130-400); RBC 4.82 10^6/uL (4.36-5.78); RDW 11.9 % (11.8-14.1); RDW-SD 38.3 fL; WBC 5.53 10^3/uL (4.4-10.8)
[2021-04-04 13:17] LABS: D-Dimer 584 ng/mlFEU (<500)
== END 2021-04-04 03:25 | disposition home or self-care (01) ==
LOC: LOS 03:25
PROVIDERS: PCP Family Medicine; Visit Provider Nurse Practitioner Family
DX: M79.605 Pain in left leg (principal)
CPT/HCPCS: 36415; 85025; 85379

== ENCOUNTER 2021-06-16 01:14 | Emergency (ER) | payer MEDICARE, SELFPAY ==
[2021-06-16] VITALS (12 sets, daily range): BP systolic 159–180; BP diastolic 74–90; PULSE 79–87; RESP 15–20; TEMP 36.6–36.8; O2SAT 95–98
--- NOTE | 2021-06-16 01:15 | RT.EKG_ITS ---
APPROVED REPORT Exam: Resting ECG Reason for Exam: chest pain Patient Location: E HR:83 bpm ECG Measurements Heart Rate 83 AXIS MA 164 P 56 QRSd 95 QRS 49 QT 372 T 36 QTc 438 Conclusion Sinus rhythm...normal P axis, V-rate 60- 99 Low voltage, extremity leads...all extremity leads <0.5mV Normal [place] I have reviewed and interpreted ECG and agree with software generated interpretation. No STEMI
--- NOTE | 2021-06-16 01:30 | DI.RAD_ITS ---
Exam(s) XR CHEST 2V PA LATERAL EXAM: XR CHEST 2V PA LATERAL CLINICAL HISTORY: CP TECHNIQUE: 2D digital imaging was performed of the chest. Two images were obtained. PA and lateral views were obtained. COMPARISON: CR XR CHEST 2V PA LATERAL from 10/16/2018 FINDINGS: MEDIASTINUM: Normal. HEART: Normal. PULMONARY VASCULATURE: Normal. LUNGS: Clear. PLEURAL SPACE: No pleural effusion or pneumothorax. BONE:Within normal limits for the patient's age. OTHER FINDINGS:Normal. IMPRESSION: No acute pulmonary findings. DATA REPOSITORY: RADIATION DOSE DELIVERED:
--- NOTE | 2021-06-16 01:33 | ED.GENADUL_ITS ---
Discharge Plan Disposition Patient Disposition: HOME Condition: Good Discharge Details Clinical Impression: Chest pain Primary Care Provider: Jasper Albrecht ED Provider: Massimo Stout Home Meds and New Rx's Prescriptions: Continued naproxen 500 mg tablet 500 mg PO BID PRN (Reason: pain) Qty: 60 RF: 2 Hold Instructions: Changed by Provider (SUSAN) OneTouch Verio test strips Strip See Rx Instructions .ROUTE .MEDSUPPLY Qty: 100 RF: 3 (DME) blood-glucose meter [OneTouch Verio Flex meter] Misc See Rx Instructions .ROUTE .MEDSUPPLY Qty: 1 RF: 0 (DME) lancets [OneTouch Delica Plus Lancet] 33 gauge misc See Rx Instructions .ROUTE .MEDSUPPLY Qty: 100 RF: 3 Basaglar KwikPen U-100 Insulin 100 unit/mL (3 mL) insulin pen 40 unit SC DAILY Qty: 45 RF: 3 (DME) Novofine Autocover 30 gauge x 1/3 needle See Rx Instructions .ROUTE .MEDSUPPLY Qty: 100 RF: 5 lisinopril 5 mg tablet 5 mg PO DAILY Qty: 90 RF: 3 glimepiride 4 mg tablet 4 mg PO DAILY Qty: 90 RF: 3 acetaminophen 500 mg tablet 1,000 mg PO Q8H PRN (Reason: pain) Qty: 90 RF: 3 metformin 500 mg tablet extended release 24hr 1,500 mg PO DAILY RF: 0 Biofreeze (menthol) 4 % Gel 4 % TOPICAL PRN PRNRF: 0 Discharge Instructions Instructions: Chest Pain (ED) Additional Instructions: Your laboratory studies, EKG and chest x-ray are reassuring. You may use your naproxen or acetaminophen for pain as this appears to be chest wall pain. Follow-up with primary care this week as scheduled. Return to ED for new or worsening pain, fever, shortness of breath, other concerns Referrals: Jasper Albrecht MD [Primary Care Provider] - Medical Decision Making Patient presenting with pleuritic chest pain that is localized to the left lower sternal border and easily reproducible starting at 11 PM tonight. EKG is normal. Patient does have cardiac risk factors. He does not have PE risk factors. Suspect musculoskeletal chest pain more than anything. Will treat with a dose of IV Toradol but will obtain laboratory studies including 2 troponins and a D-dimer. Chest x-ray ordered. Patient's pain essentially gone with IV Toradol. Laboratory studies unremarkable other than elevated glucose. First troponin is negative. D-dimer is negative. Chest x-ray unremarkable per my review. Discussed with patient regarding second EKG and troponin which he is agreeable with. Repeat EKG and troponin are unchanged. Patient will be discharged home and may use his Naprosyn as needed for what is likely chest wall pain. Follow-up with primary care next week as scheduled. Return to ED for new or worsening pain, shortness of breath, other concerns. Medical Records Medical records reviewed: Yes I reviewed the patient's medical records. Lab Data Lab results reviewed: Yes I reviewed the patient's lab results. ECG Data Attestation: I personally reviewed and interpreted this ECG (s) as follows: Prior ECG tracings: not available for review Interpretation: see EKG HPI General Mode of arrival: wheelchair . Date/Time Provider Initiated Documentation: 06/16/21 01:27 . Limitations to Documentation: no limitations . Information obtained by: patient, RN notes reviewed and old records reviewed . HPI Narrative: Patient presents to ED with left-sided pleuritic type chest pain onset tonight around 11 PM. Patient has not had this previously. Pain much worse with movement or inspiration. Feels short of breath in the sense that he cannot take a deep breath. Pain is fairly localized. It does not radiate anywhere. He has no associated lightheadedness, weakness, diaphoresis, nausea, abdominal pain. States that he became worse after he tried to load his woodstove but he was having the pain prior to that. Denies any trauma or injury. Denies fever, cough, URI symptoms. Related Data Home Medications Medication Instructions Recorded Confirmed naproxen 500 mg tablet 500 mg PO BID PRN #60 tab 08/28/18 04/03/21 acetaminophen 1,000 mg PO Q8H PRN #90 tab 11/12/18 06/16/21 Biofreeze (menthol) 4 % TOPICAL PRN PRN 12/14/18 06/16/21 blood sugar diagnostic #100 each 11/05/19 04/03/21 blood-glucose meter #1 each 11/05/19 04/03/21 lancets 33 gauge #100 each 11/05/19 04/03/21 insulin glargine 100 unit/mL (3 40 unit SC DAILY #45 ml 06/07/20 06/16/21 mL) subcutaneous pen pen needle, diabetic, safety 30 #100 each 08/10/20 04/03/21 gauge x 1/3 lisinopril 5 mg tablet 5 mg PO DAILY #90 tab-cap 12/01/20 06/16/21 glimepiride 4 mg tablet 4 mg PO DAILY #90 tab 12/11/20 06/16/21 metformin 1,500 mg PO DAILY 06/16/21 06/16/21 Previous Rx's Medication Instructions Recorded naproxen 500 mg tablet 500 mg PO BID PRN #60 tab 08/28/18 acetaminophen 1,000 mg PO Q8H PRN #90 tab 11/12/18 blood sugar diagnostic #100 each 11/05/19 blood-glucose meter #1 each 11/05/19 lancets 33 gauge #100 each 11/05/19 insulin glargine 100 unit/mL (3 40 unit SC DAILY #45 ml 06/07/20 mL) subcutaneous pen pen needle, diabetic, safety 30 #100 each 08/10/20 gauge x 1/3 lisinopril 5 mg tablet 5 mg PO DAILY #90 tab-cap 12/01/20 glimepiride 4 mg tablet 4 mg PO DAILY #90 tab 12/11/20 Allergies Allergy/AdvReac Type Severity Reaction Status Date / Time aspirin Allergy Intermediate CHEST PAIN Verified 06/16/21 01:25 empagliflozin AdvReac Intermediate GI UPSET Verified 06/16/21 01:25 [From Jardiance] methylprednisolone AdvReac Verified 06/16/21 01:25 DECAFFEINATED COFFEE Allergy Severe UNABLE TO Uncoded 06/16/21 01:25 BREATHE General Stated Complaint: Chest Pain NATHALY: 2 Review of Systems Narrative: As documented in HPI otherwise negative as below. 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 Cunha (R) Family History Mother No problems noted. Father , age 56 Stroke Sister No problems noted. Brother No problems noted. Son No problems noted. Son No problems noted. 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 Pets and animals: No Sexually active: No Do you think of yourself as: straight/heterosexual Current gender identity: male What is your relationship status?: How often do you talk on the phone with friends or family?: three or more times per week How often do you get together with friends or relatives?: once per week Do you belong to any clubs or organized social groups?: no Panel score (0-1 are the most socially isolated patients): 1 What type of physical activity do you participate in: walking Duration: 45-60 minutes/day Frequency: daily Ale/Zoroastrianism: None Seatbelt use: always Helmet use: No 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 HEENT: NC/AT. Normal facial exam. Eyes: Normal conjunctiva and sclera. Neck: Supple. Trachea midline. Lungs: Normal respiratory effort. Lungs are clear. Focal significant point tenderness LLSB. Cor: RRR without murmur/gallop. Good radial pulses. GI: Soft. NT/ND. No guarding or rebound. Neuro: A+O x 3. Normal speech, mentation, gait. Cranial nerves II - XII grossly intact. No gross motor or sensory deficit. Ext: No C/C/E. No calf tenderness. Skin: Warm and dry without rash. Course Vital Signs Vital signs: Vital Signs Temperature 97.9 F 06/16/21 01:20 Pulse 83 06/16/21 01:20 Respiratory Rate 18 06/16/21 01:20 Blood Pressure 180/78 H 06/16/21 01:20 Temperature 97.9 F 06/16/21 01:20 Temperature Source Skin 06/16/21 01:20 Pulse 83 06/16/21 01:20 Respiratory Rate 18 06/16/21 01:20 Respiratory Effort 06/16/21 01:27 Blood Pressure 180/78 H 06/16/21 01:20 Pain Level 8 06/16/21 01:20
[2021-06-16] MEDS: Ketorolac 15 MG/ML VIAL IVP (02:02)
[2021-06-16] MEDS: Normal Saline 1,000 ML 200 ML IV (02:02)
[2021-06-16 02:04] LABS: Abs Immature Grans 0.06 10^3/uL (0.0-0.06); Absolute Basophil Count 0.04 10^3/uL (0.0-0.2); Absolute Eosinophil Count 0.16 10^3/uL (0.0-0.7); Absolute Lymphocyte Count 3.36 10^3/uL (1.2-3.4); Absolute Monocyte Count 0.78 10^3/uL (0.1-0.8); Absolute Neutrophil Count 5.33 10^3/uL (1.2-6.7); Basophils % 0.4; Eosinophils % 1.6; HCT 44.5 % (40.0-50.0); HGB 14.7 g/dL (13.5-17.5); Immature Grans % 0.6; Lymphocytes % 34.5; MCH 29.5 pg (27.0-33.0); MCV 89.4 fL (80-95); MPV 10.1 fL (8.0-11.0); Neutrophils % 54.9; Nucleated RBC 0 %; Platelet Count 229 10^3/uL (130-400); RBC 4.98 10^6/uL (4.36-5.78); RDW 11.9 % (11.8-14.1); RDW-SD 38.3 fL; WBC 9.73 10^3/uL (4.4-10.8)
[2021-06-16 02:23] LABS: ALT 37 U/L (16-63); AST 13 U/L (15-37); Albumin 3.5 g/dL (3.4-5.0); Alkaline Phosphatase 67 U/L (46-116); BUN 21 mg/dL (7-18); Bilirubin, Total 0.3 mg/dL (0.2-1.0); Calcium 8.3 mg/dL (8.5-10.1); Chloride 101 mmol/L (98-107); Glucose 305 mg/dL (74-106); Magnesium 2.1 mg/dL (1.8-2.4); Potassium 3.7 mmol/L (3.5-5.1); Sodium 136 mmol/L (136-145); Total Protein 7.4 g/dL (6.4-8.2)
[2021-06-16 02:24] LABS: Troponin I < 0.05 ng/mL (<0.06)
[2021-06-16 02:36] LABS: D-Dimer 250 ng/mlFEU (<500)
--- NOTE | 2021-06-16 04:00 | RT.EKG_ITS ---
APPROVED REPORT Exam: Resting ECG Reason for Exam: repeat trop Patient Location: E HR:73 bpm ECG Measurements Heart Rate 73 AXIS MA 184 P 59 QRSd 88 QRS 63 QT 384 T 42 QTc 423 Conclusion Sinus rhythm...normal P axis, V-rate 60- 99 Low voltage, extremity leads...all extremity leads <0.5mV There are no significant changes compared to prior EKG performed on 06/16/2021 at 01:21.
--- NOTE | 2021-06-16 04:08 | DI.VRAD_ITS ---
PROCEDURE INFORMATION: Exam: XR Chest Exam date and time: 06/16/2021 1:36 AM Age: 66 years old Clinical indication: Other: Cp TECHNIQUE: Imaging protocol: XR of the chest. Views: 2 views. COMPARISON: CT CHEST W 10/22/2018 9:17 AM FINDINGS: Lungs: Unremarkable. No consolidation. Pleural spaces: Unremarkable. No pleural effusion. No pneumothorax. Heart/Mediastinum: Unremarkable. No cardiomegaly. Bones/joints: Unremarkable. IMPRESSION: No acute findings. Dictated and Authenticated by: Erlin Rodriguez MD. Ordering:EN Keys MD
[2021-06-16 05:06] LABS: Troponin I < 0.05 ng/mL (<0.06)
== END 2021-06-16 05:25 | disposition home or self-care (01) ==
PROVIDERS: Emergency Provider Emergency Medicine; PCP Family Medicine
DX: R07.9 Chest pain, unspecified (principal)
CPT/HCPCS: 80053; 93005; 96374; 99284; 71046; 83735; 84484; 85025; 85379; 93010; J1885

== ENCOUNTER 2021-10-17 09:21 | Outpatient (REF) | payer OTHER, SELFPAY ==
[2021-10-17 14:36] LABS: COMMENT (LAB VIEW ONLY) 192.76 mg/dL; Microalb ug/mg Crea 3.2 ug/mg Cr
== END 2021-10-17 09:22 | disposition home or self-care (01) ==
LOC: LBN 09:21
PROVIDERS: PCP Family Medicine; Visit Provider Family Medicine
DX: E11.9 Type 2 diabetes mellitus without complications (principal)
CPT/HCPCS: 82043; 82570

== ENCOUNTER 2022-10-16 03:01 | Outpatient (CLI) | payer OTHER, SELFPAY ==
[2022-10-16 13:27] LABS: Anion Gap 8.5 mmol/L (3-11); BUN 19 mg/dL (7-18); CO2 29.5 mmol/L (21.0-32.0); CREATININE 1.1 mg/dL (0.70-1.30); Calcium 8.6 mg/dL (8.5-10.1); Calculated LDL 123 mg/dL (<100); Chloride 99 mmol/L (98-107); Cholesterol 203 mg/dL (<200); Estimated GFR 74.04 (mL/min/1.73m2); Glucose 319 mg/dL (74-106); HDL Cholesterol 55 mg/dL (40-60); Potassium 3.9 mmol/L (3.5-5.1); Sodium 137 mmol/L (136-145); Triglyceride 125 mg/dL (<150)
== END 2022-10-16 03:02 | disposition home or self-care (01) ==
LOC: LOS 03:01
PROVIDERS: PCP Family Medicine; Visit Provider Family Medicine
DX: E11.9 Type 2 diabetes mellitus without complications (principal); E78.5 Hyperlipidemia, unspecified; E87.1 Hypo-osmolality and hyponatremia
CPT/HCPCS: 36415; 80048; 80061

== ENCOUNTER 2022-10-31 11:00 | Outpatient (CLI) | payer OTHER, SELFPAY ==
[2022-10-31 12:40] LABS: Hemoglobin A1C 10.6 % (<5.7)
== END 2022-10-31 11:01 | disposition home or self-care (01) ==
LOC: LOS 11:00
PROVIDERS: PCP Family Medicine; Referring Provider Family Medicine; Visit Provider Family Medicine
DX: E11.51 Type 2 diabetes mellitus with diabetic peripheral angiopathy without gangrene (principal); I70.209 Unspecified atherosclerosis of native arteries of extremities, unspecified extremity
CPT/HCPCS: 36415; 83036

== ENCOUNTER 2022-10-31 17:49 | Outpatient (REF) | payer OTHER, SELFPAY ==
[2022-10-31 13:09] LABS: Microalb ug/mg Crea 9.7 ug/mg Cr
== END 2022-10-31 17:50 | disposition home or self-care (01) ==
LOC: LBN 17:49
PROVIDERS: PCP Family Medicine; Visit Provider Family Medicine
DX: E11.9 Type 2 diabetes mellitus without complications (principal)
CPT/HCPCS: 82043; 82570

== ENCOUNTER 2024-03-02 09:22 | Outpatient (CLI) | payer OTHER, SELFPAY ==
[2024-03-02 12:26] LABS: CREATININE 0.9 mg/dL (0.70-1.30); Calculated LDL 70 mg/dL (<100); Cholesterol 139 mg/dL (<200); Estimated GFR 93.61 (mL/min/1.73m2); HDL Cholesterol 53 mg/dL (40-60); Potassium 3.9 mmol/L (3.5-5.1); Triglyceride 84 mg/dL (<150)
== END 2024-03-02 09:23 | disposition home or self-care (01) ==
LOC: LOS 09:22
PROVIDERS: PCP Family Medicine; Referring Provider Family Medicine; Visit Provider Family Medicine
DX: E78.5 Hyperlipidemia, unspecified (principal); I10 Essential (primary) hypertension; E11.9 Type 2 diabetes mellitus without complications; F41.9 Anxiety disorder, unspecified; M79.641 Pain in right hand; M79.642 Pain in left hand; E66.9 Obesity, unspecified
CPT/HCPCS: 36415; 80061; 82565; 84132

== ENCOUNTER 2024-03-02 14:41 | Outpatient (REF) | payer OTHER, SELFPAY ==
[2024-03-02 12:44] LABS: COMMENT (LAB VIEW ONLY) 164.64 mg/dL; Microalb ug/mg Crea 26.4 ug/mg Cr
== END 2024-03-02 14:42 | disposition home or self-care (01) ==
LOC: LBN 14:41
PROVIDERS: PCP Family Medicine; Visit Provider Family Medicine
DX: E11.9 Type 2 diabetes mellitus without complications (principal); I10 Essential (primary) hypertension; E78.5 Hyperlipidemia, unspecified; F41.9 Anxiety disorder, unspecified; M79.641 Pain in right hand; M79.642 Pain in left hand; E66.9 Obesity, unspecified
CPT/HCPCS: 82043; 82570

== ENCOUNTER 2024-12-02 03:13 | Outpatient (CLI) | payer MEDICARE, SELFPAY ==
[2024-12-02 12:06] LABS: HCT 46.5 % (40.0-50.0); HGB 15.7 g/dL (13.5-17.5); MCH 30.4 pg (27.0-33.0); MCHC 33.8 % (32.0-36.0); MCV 90 fL (80-95); MPV 10.7 fL (8.0-11.0); Platelet Count 230 10^3/uL (130-400); RBC 5.16 10^6/uL (4.36-5.78); RDW 12.6 % (11.8-14.1); RDW-SD 41.2 fL; WBC 8.42 10^3/uL (4.4-10.8)
[2024-12-02 12:28] LABS: TSH (W/Ref FT4) 2.16 uIU/mL (0.36-3.74)
== END 2024-12-02 03:14 | disposition home or self-care (01) ==
LOC: LOS 03:13
PROVIDERS: PCP Family Medicine; Visit Provider Pharmacist
DX: E11.9 Type 2 diabetes mellitus without complications (principal)
CPT/HCPCS: 36415; 85027; 84443

== ENCOUNTER 2025-04-28 14:38 | Outpatient (CLI) | payer MEDICARE, SELFPAY ==
[2025-04-28 16:34] LABS: Estimated GFR 93.03 (mL/min/1.73m2); Potassium 4.0 mmol/L (3.5-5.1); Vitamin B12 329 pg/mL (193-986)
== END 2025-04-28 14:39 | disposition home or self-care (01) ==
LOC: LOS 14:38
PROVIDERS: PCP Family Medicine; Visit Provider Family Medicine
DX: D64.9 Anemia, unspecified (principal); I10 Essential (primary) hypertension
CPT/HCPCS: 36415; 82565; 82607; 84132